=== PATIENT | male | born 1995 | race Caucasian/White ===

== ENCOUNTER 2020-12-19 16:33 | Inpatient (IN) | payer BC, OTHER ==
[~2020-12-19] VITALS: Ht 180.3 cm; Wt 95.5 kg
[~2020-12-19 16:33] MED LIST: LORA0.5T PO; SERT25TA PO
[2020-12-19] MEDS ORDERED: acetaminophen 325mg tablet PO ONE (16:55)
[2020-12-19 17:46] LABS: BASOPHILS # (AUTO) 0.1 X10'3 (0-0.2); BASOPHILS % (AUTO) 0.3 % (0-1); EOSINOPHILS % (AUTO) 0 % (0-6); HEMATOCRIT 43.4 % (42.0-52.0); HEMOGLOBIN 14.6 g/dl (14.0-17.9); LYMPHOCYTES # (AUTO) 0.8 X10'3 (1.1-4.8); LYMPHOCYTES % (AUTO) 3.1 % (21-51); MEAN CORPUSCULAR HEMOGLOBIN 30.3 PG (27.0-31.0); MEAN CORPUSCULAR HGB CONC 33.7 g/dL (33.0-36.5); MEAN CORPUSCULAR VOLUME 90.2 FL (78-98); MEAN PLATELET VOLUME 8.8 FL (7.4-10.4); MONOCYTES # (AUTO) 2.2 X10'3 (0-0.9); MONOCYTES % (AUTO) 8.2 % (2-12); NEUTROPHILS # (AUTO) 23.7 X10'3 (1.8-7.7); NEUTROPHILS % (AUTO) 88.4 % (42-75); PLATELET COUNT 304 X10'3 (140-440); RED BLOOD COUNT 4.81 X10'6 (4.70-6.10); RED CELL DISTRIBUTION WIDTH 13.1 % (11.5-14.5)
[2020-12-19 17:47] LABS: CLARITY,URINE SLIGHTLY CLOUDY (Clear); COLOR,URINE YELLOW (Yellow); GLUCOSE, URINE NEGATIVE (Neg); KETONES,URINE 15 mg/dl (Neg); LEUKOCYTE ESTERASE ,URINE NEGATIVE (Neg); NITRITES, URINE NEGATIVE (Neg); OCCULT BLOOD,URINE NEGATIVE (Neg); PROTEIN,URINE 100 mg/dl (Neg); UROBILINOGEN,URINE 0.2 E.U/dL (0.2-1.0)
[2020-12-19 17:59] LABS: WHITE BLOOD COUNT 26.8 X10'3 (4.5-11.0)
[2020-12-19 18:00] LABS: ALANINE AMINOTRANSFERASE 38 U/L (12-78); ALBUMIN 4.4 G/DL (3.4-5.0); ALKALINE PHOSPHATASE 53 IU/L (46-116); ANION GAP 16 (8-16); ASPARTATE AMINO TRANSFERASE 26 U/L (10-37); BILIRUBIN,TOTAL 0.8 MG/DL (0.1-1.0); BLOOD UREA NITROGEN 15 MG/DL (7-18); BUN/CREATININE RATIO 14.2 (5.4-32.0); CALCIUM 9.4 MG/DL (8.5-10.1); CHLORIDE 99 MMOL/L (99-107); CREATININE 1.06 MG/DL (0.60-1.10); GLUCOSE 105 MG/DL (70-104); POTASSIUM 3.5 MMOL/L (3.5-5.1); SODIUM 139 MMOL/L (135-145); TOTAL CARBON DIOXIDE 23.8 MMOL/L (24-32); TOTAL PROTEIN 8.6 G/DL (6.4-8.2); eGFR 87 ML/MIN
[2020-12-19 18:03] LABS: UA COLLECTION TYPE CLN CATCH MIDSTREAM
[2020-12-19 18:04] LABS: BACTERIA,URINE 1+ /HPF (Neg); RBC,URINE NONE SEEN /HPF (0-2); SQUAMOUS EPITHELIAL CELL,UR MODERATE /LPF (FEW)
[2020-12-19 18:05] LABS: MUCUS STRANDS MODERATE /LPF (Neg)
[2020-12-19] MEDS ORDERED: azithromycin/NS 500mg/250ml 250 ML IV ONE (18:20)
[2020-12-19 19:21] LABS: URINE AMPHETAMINE SCREEN NEGATIVE (Neg); URINE BENZODIAZEPINES SCREEN NEGATIVE (Neg); URINE METHADONE SCREEN NEGATIVE (Neg); URINE PHENCYCLIDINE SCREEN NEGATIVE (Neg)
[2020-12-19 19:33] LABS: URINE BARBITUATE SCREEN NEGATIVE (Neg); URINE CANNABINOID SCREEN POSITIVE (Neg); URINE COCAINE SCREEN NEGATIVE (Neg); URINE OPIATE SCREEN NEGATIVE (Neg)
[2020-12-19 19:37] LABS: TOTAL CELLS COUNTED 100
[2020-12-19 19:38] LABS: BANDS% (MANUAL) 7 % (0-10); LYMPHOCYTES % (MANUAL) 7 % (21-51); MONOCYTES % (MANUAL) 6 % (2-12); NEUTROPHILS % (MANUAL) 80 % (42-75); PLATELET ESTIMATE NORMAL
[2020-12-19] MEDS ORDERED: temazepam 15mg capsule PO PRN (21:00)
[2020-12-19] MEDS ORDERED: ondansetron/PF 4mg/2ml inj IV PRN (21:10)
[2020-12-19] MEDS ORDERED: potassium Cl 20 mEq SR tablet PO PRN ×2 (21:10)
[2020-12-19] MEDS ORDERED: magnesium 4gm in 100ml NS 100 ML IV PRN (21:10)
[2020-12-19] MEDS ORDERED: magnesium 2GM in 50ml NS 50 ML IV PRN (21:10)
[2020-12-19] MEDS ORDERED: potassium Cl 40MEQ/1/2NS 520ml 520 ML IV PRN ×2 (21:10)
[2020-12-19] MEDS ORDERED: magnesium Cl slow-release 64mg tablet PO PRN (21:10)
[2020-12-19] MEDS ORDERED: acetaminophen 325mg tablet PO PRN (21:10)
[2020-12-19] MEDS ORDERED: morphine 2 MG/ML inj. syringe IV PRN (21:10)
[2020-12-19] MEDS ORDERED: vancomycin/NS 1 GM ADD-VANTAGE 250 ML IV ONE ×2 (22:00→23:30)
[2020-12-19] MEDS: normal saline 1000ml 1,000 ML IV SCH (22:00)
[2020-12-19 22:12] LABS: HEMOGLOBIN A1C 5.6 % (4.5-6.2)
[2020-12-19] MEDS: HYDROcodone/acetaminophen 5mg/325mg tablet PO PRN (22:23)
[2020-12-19] MEDS ORDERED: DULO60CA45 PO (22:39)
[2020-12-20] MEDS: normal saline 1000ml 1,000 ML IV SCH ×4 (03:50→20:58)
[2020-12-20] MEDS ORDERED: vancomycin/NS 1 GM ADD-VANTAGE 250 ML IV SCH (07:00)
--- NOTE | 2020-12-20 07:10 | NUR ---
Patient coming from ER to be placed in room PCU 3020. I have received report from Meli LIM and had the opportunity to ask questions and assume patient care.
[2020-12-20 07:25] VITALS: BP 120/62
--- NOTE | 2020-12-20 07:25 | NUR ---
Pt arrived to unit at 0715 via gurney, ambulated to bed. gait stable. pt alert and oriented, no sob. SRx2, BLL, CL within reach, oriented to new room, non skids on feet, infection control and safety education completed. no s/sx acute distress
[2020-12-20 07:39] LABS: BASOPHILS % (AUTO) 0.1 % (0-1); EOSINOPHILS % (AUTO) 0.1 % (0-6); HEMOGLOBIN 12.2 g/dl (14.0-17.9); LYMPHOCYTES # (AUTO) 1.2 X10'3 (1.1-4.8); LYMPHOCYTES % (AUTO) 5.2 % (21-51); MEAN CORPUSCULAR HEMOGLOBIN 30.1 PG (27.0-31.0); MEAN CORPUSCULAR VOLUME 91.1 FL (78-98); MEAN PLATELET VOLUME 8.5 FL (7.4-10.4); MONOCYTES # (AUTO) 2.4 X10'3 (0-0.9); MONOCYTES % (AUTO) 10.9 % (2-12); NEUTROPHILS # (AUTO) 18.5 X10'3 (1.8-7.7); NEUTROPHILS % (AUTO) 83.7 % (42-75); PLATELET COUNT 253 X10'3 (140-440); RED BLOOD COUNT 4.06 X10'6 (4.70-6.10); RED CELL DISTRIBUTION WIDTH 13.3 % (11.5-14.5); WHITE BLOOD COUNT 22.1 X10'3 (4.5-11.0)
[2020-12-20 08:00] LABS: ALANINE AMINOTRANSFERASE 32 U/L (12-78); ALBUMIN 3.2 G/DL (3.4-5.0); ALBUMIN/GLOBULIN RATIO 0.9 (1.1-1.5); ALKALINE PHOSPHATASE 38 IU/L (46-116); ASPARTATE AMINO TRANSFERASE 20 U/L (10-37); BILIRUBIN,TOTAL 0.4 MG/DL (0.1-1.0); BLOOD UREA NITROGEN 13 MG/DL (7-18); BUN/CREATININE RATIO 18.1 (5.4-32.0); CALCIUM 8.5 MG/DL (8.5-10.1); CREATININE 0.72 MG/DL (0.60-1.10); GLUCOSE 101 MG/DL (70-104); MAGNESIUM 1.9 MG/DL (1.5-2.4); TOTAL CARBON DIOXIDE 25.9 MMOL/L (24-32); TOTAL PROTEIN 6.7 G/DL (6.4-8.2); eGFR > 90 ML/MIN
[2020-12-20] MEDS: K and/or MAG REPLACEMENT MC SCH ×2 (08:00→20:00)
[2020-12-20 08:09] LABS: ANION GAP 9 (8-16); CHLORIDE 106 MMOL/L (99-107); SODIUM 141 MMOL/L (135-145)
[2020-12-20 08:39] LABS: PLATELET ESTIMATE NORMAL; TOTAL CELLS COUNTED 100
[2020-12-20] MEDS: duloxetine 30mg CAPSULE.DR PO SCH (09:52)
[2020-12-20] MEDS: pantoprazole 40 MG vial IV SCH (09:53)
[2020-12-20] MEDS: levoFLOXACIN-Levaquin 500mg/D5 100 ML IV SCH (09:53)
[2020-12-20] MEDS: HYDROcodone/acetaminophen 5mg/325mg tablet PO PRN (09:53)
[2020-12-20] MEDS: heparin, porcine 5000 units/ml vial SQ SCH ×2 (09:54→20:53)
[2020-12-20 11:00] VITALS: BP 127/65
--- NOTE | 2020-12-20 11:40 | NUR ---
continue to message pharmacy regarding vanco dose and zithromax. medication will be administered when available. aware. Dr. Shah ordered CLDiet. waiting until i can get ahold of CT for ABD CT before given broth.
--- NOTE | 2020-12-20 11:45 | NUR ---
[facility] pharmacist called. Ruthanno located on floor. Zithromax dose to be sent up nena Addendum: 12/20/20 at 1204 by Anel Marie RN As vanco prepared for administration, vanco order discontinued. dose not given. Addendum: 12/20/20 at 1316 by Anel Marie RN let "floor" in vanco located on floor mean on telemetry unit floor in pharmacy in box in [facility] room
[2020-12-20] MEDS: azithromycin/NS 500mg/250ml 250 ML IV SCH (11:56)
--- NOTE | 2020-12-20 13:16 | NUR ---
pt attempted to drink apple juice and vomited. 250ml apple juice colored emesis. zofran administered. awaiting effectiveness prior to gastrografin.
[2020-12-20] MEDS: diatr meglu/diatrizoate 30ml oral sol.-(3 dose) bottle PO SCH ×3 (13:38→17:19)
[2020-12-20 15:00] VITALS: BP 129/63
[2020-12-20] MEDS ORDERED: iohexol 300mg/ml 100ml inj. ONE (17:19)
[2020-12-20 19:00] VITALS: BP 143/68
[2020-12-20] MEDS ORDERED: VANCOMYCIN LEVEL IV ONE (20:30)
[2020-12-20] MEDS: lactobacillus rhamnosus 10,000 MMU CELLS/CAPSULE PO SCH (20:53)
[2020-12-20] MEDS: acetaminophen 325mg tablet PO PRN (22:00)
[2020-12-20 23:00] VITALS: BP 125/82
--- NOTE | 2020-12-21 00:04 | NUR ---
Patient in room PCU 3020. I have received report from RELL LIM and had the opportunity to ask questions and assume patient care.
--- NOTE | 2020-12-21 00:13 | NUR ---
Problems reprioritized. Patient report given, questions answered & plan of care reviewed with Sherwin LIM.
--- NOTE | 2020-12-21 00:45 | NUR ---
AGREE WITH CARINA SHANKS.
[2020-12-21 03:00] VITALS: BP 122/80
[2020-12-21 05:59] LABS: BASOPHILS % (AUTO) 0.3 % (0-1); EOSINOPHILS % (AUTO) 0.3 % (0-6); HEMATOCRIT 35.9 % (42.0-52.0); HEMOGLOBIN 11.9 g/dl (14.0-17.9); LYMPHOCYTES # (AUTO) 1.4 X10'3 (1.1-4.8); LYMPHOCYTES % (AUTO) 9.7 % (21-51); MEAN CORPUSCULAR HEMOGLOBIN 30.3 PG (27.0-31.0); MEAN CORPUSCULAR HGB CONC 33.2 g/dL (33.0-36.5); MEAN CORPUSCULAR VOLUME 91.5 FL (78-98); MEAN PLATELET VOLUME 8.6 FL (7.4-10.4); MONOCYTES # (AUTO) 1.6 X10'3 (0-0.9); MONOCYTES % (AUTO) 11.2 % (2-12); NEUTROPHILS # (AUTO) 11.5 X10'3 (1.8-7.7); NEUTROPHILS % (AUTO) 78.5 % (42-75); PLATELET COUNT 231 X10'3 (140-440); RED BLOOD COUNT 3.93 X10'6 (4.70-6.10); RED CELL DISTRIBUTION WIDTH 13.1 % (11.5-14.5); WHITE BLOOD COUNT 14.6 X10'3 (4.5-11.0)
[2020-12-21 06:17] LABS: ALANINE AMINOTRANSFERASE 26 U/L (12-78); ALBUMIN 2.9 G/DL (3.4-5.0); ALBUMIN/GLOBULIN RATIO 0.9 (1.1-1.5); ALKALINE PHOSPHATASE 40 IU/L (46-116); ANION GAP 7 (8-16); ASPARTATE AMINO TRANSFERASE 21 U/L (10-37); BILIRUBIN,TOTAL 0.4 MG/DL (0.1-1.0); BLOOD UREA NITROGEN 12 MG/DL (7-18); CALCIUM 8.4 MG/DL (8.5-10.1); CHLORIDE 107 MMOL/L (99-107); GLUCOSE 89 MG/DL (70-104); MAGNESIUM 1.8 MG/DL (1.5-2.4); POTASSIUM 4.3 MMOL/L (3.5-5.1); SODIUM 141 MMOL/L (135-145); TOTAL CARBON DIOXIDE 26.6 MMOL/L (24-32); TOTAL PROTEIN 6.3 G/DL (6.4-8.2); eGFR > 90 ML/MIN
--- NOTE | 2020-12-21 06:25 | NUR ---
Patient in room PCU 3020. I have received report from CARINA Courtney and had the opportunity to ask questions and assume patient care.
[2020-12-21 07:00] VITALS: BP 129/82
[2020-12-21] MEDS: lactobacillus rhamnosus 10,000 MMU CELLS/CAPSULE PO SCH ×2 (07:33→19:43)
[2020-12-21] MEDS: duloxetine 30mg CAPSULE.DR PO SCH (07:34)
[2020-12-21] MEDS: pantoprazole 40 MG vial IV SCH (07:34)
[2020-12-21] MEDS: heparin, porcine 5000 units/ml vial SQ SCH ×2 (07:35→19:46)
[2020-12-21] MEDS: levoFLOXACIN-Levaquin 500mg/D5 100 ML IV SCH (07:35)
[2020-12-21] MEDS: normal saline 1000ml 1,000 ML IV SCH ×3 (07:36→19:45)
[2020-12-21] MEDS: K and/or MAG REPLACEMENT MC SCH ×2 (08:00→19:35)
[2020-12-21] MEDS: azithromycin/NS 500mg/250ml 250 ML IV SCH (09:46)
[2020-12-21 11:00] VITALS: BP 126/69
[2020-12-21 15:00] VITALS: BP 157/83
[2020-12-21] MEDS: acetaminophen 325mg tablet PO PRN (15:15)
--- NOTE | 2020-12-21 18:28 | NUR ---
Problems reprioritized. Patient report given, questions answered & plan of care reviewed with CARINA Marcano. Pt sitting up in bed, no signs of distress, all pt needs met at this time.
[2020-12-21 19:00] VITALS: BP 134/74
[2020-12-21 22:00] VITALS: BP 137/77
[2020-12-22 02:00] VITALS: BP 124/69
[2020-12-22] MEDS: normal saline 1000ml 1,000 ML IV SCH (02:03)
--- NOTE | 2020-12-22 06:10 | NUR ---
Problems reprioritized. Patient report given, questions answered & plan of care reviewed with day RN. Addendum: 12/22/20 at 0610 by Krys Morgan RN Amended: Links added.
[2020-12-22 07:23] LABS: BASOPHILS % (AUTO) 0.2 % (0-1); EOSINOPHILS % (AUTO) 0.4 % (0-6); HEMATOCRIT 35.1 % (42.0-52.0); HEMOGLOBIN 11.9 g/dl (14.0-17.9); LYMPHOCYTES # (AUTO) 1.4 X10'3 (1.1-4.8); MEAN CORPUSCULAR HEMOGLOBIN 30.3 PG (27.0-31.0); MEAN CORPUSCULAR VOLUME 89.2 FL (78-98); MEAN PLATELET VOLUME 8.2 FL (7.4-10.4); MONOCYTES % (AUTO) 9.2 % (2-12); NEUTROPHILS # (AUTO) 8.1 X10'3 (1.8-7.7); NEUTROPHILS % (AUTO) 77.2 % (42-75); PLATELET COUNT 270 X10'3 (140-440); RED BLOOD COUNT 3.94 X10'6 (4.70-6.10); WHITE BLOOD COUNT 10.5 X10'3 (4.5-11.0)
[2020-12-22 07:39] LABS: ALANINE AMINOTRANSFERASE 35 U/L (12-78); ALBUMIN 2.9 G/DL (3.4-5.0); ALBUMIN/GLOBULIN RATIO 0.8 (1.1-1.5); ALKALINE PHOSPHATASE 39 IU/L (46-116); ANION GAP 11 (8-16); ASPARTATE AMINO TRANSFERASE 19 U/L (10-37); BILIRUBIN,TOTAL 0.5 MG/DL (0.1-1.0); BLOOD UREA NITROGEN 9 MG/DL (7-18); BUN/CREATININE RATIO 12.2 (5.4-32.0); CALCIUM 8.2 MG/DL (8.5-10.1); CHLORIDE 106 MMOL/L (99-107); CREATININE 0.74 MG/DL (0.60-1.10); GLUCOSE 75 MG/DL (70-104); MAGNESIUM 1.6 MG/DL (1.5-2.4); POTASSIUM 3.4 MMOL/L (3.5-5.1); SODIUM 140 MMOL/L (135-145); TOTAL CARBON DIOXIDE 23.5 MMOL/L (24-32); TOTAL PROTEIN 6.7 G/DL (6.4-8.2); eGFR > 90 ML/MIN
[2020-12-22] MEDS ORDERED: COVID-19 VACC, MRNA(PFIZER)/PF--BNT162b2 syringe IMVAC ONE (08:00)
[2020-12-22] MEDS: heparin, porcine 5000 units/ml vial SQ SCH (08:00)
[2020-12-22] MEDS: levoFLOXACIN-Levaquin 500mg/D5 100 ML IV SCH (08:53)
[2020-12-22] MEDS ORDERED: PANT-47 PO (09:00)
[2020-12-22] MEDS: pantoprazole 40 MG vial IV SCH (09:00)
[2020-12-22] MEDS ORDERED: LEVO500T89 PO (09:00)
[2020-12-22] MEDS: duloxetine 30mg CAPSULE.DR PO SCH (09:01)
[2020-12-22] MEDS: lactobacillus rhamnosus 10,000 MMU CELLS/CAPSULE PO SCH (09:01)
[2020-12-22] MEDS: azithromycin/NS 500mg/250ml 250 ML IV SCH (10:17)
--- NOTE | 2020-12-22 11:15 | NUR ---
pt iv removed and cath tip intact. he says" i feel better. Delay to dc was to complete his iv abx which were uncompatable at y site. grandma came to shrimp picker. a/ox3, deny sob, n/v or pain.
== END 2020-12-22 12:14 | disposition home or self-care (01) | DRG 872 ==
LOC: ER 16:34 → ED HOLD 21:08 → PCU 3S 12-20 07:15
PROVIDERS: ADMIT Internal Medicine; ATTEND Family Medicine
PROC: BW211ZZ Computerized Tomography (CT Scan) of Abdomen and Pelvis using Low Osmolar Contrast (ICD-10-PCS; principal; 2020-12-20)
DX: A41.9 Sepsis, unspecified organism (principal); N12 Tubulo-interstitial nephritis, not specified as acute or chronic; B95.2 Enterococcus as the cause of diseases classified elsewhere; F12.90 Cannabis use, unspecified, uncomplicated; Z20.822 Contact with and (suspected) exposure to COVID-19; F17.200 Nicotine dependence, unspecified, uncomplicated; F41.9 Anxiety disorder, unspecified; F32.9 Major depressive disorder, single episode, unspecified
CPT/HCPCS: 36415; 71045; 74176; 74177; 80053; 80305; 81001; 83036; 83605; 83735; 84145; 85007; 85025; 87040; 87077; 87081; 87088; 87186; 87491; 87635; 96365; 97116; 97161; 97530; 99285; C9113; C9803; G0378; J0456; J1644; J1956; J2405; J3370; J7030; Q9963; Q9967